=== PATIENT | male | born 1960 | race Hispanic/Latino ===

== ENCOUNTER 2020-06-01 11:14 | Emergency (ER) | payer SELFPAY ==
--- NOTE | 2020-06-01 12:38 | RAD REPORT ---
EXAM DESCRIPTION: RAD - Chest Single View - 06/01/2020 12:30 pm CLINICAL HISTORY: COUGH Chest pain. COMPARISON: No comparisons FINDINGS: Portable technique limits examination quality. The lungs are grossly clear. The heart is normal in size. No displaced fractures. IMPRESSION: No acute intrathoracic process suspected.
[2020-06-01 13:01] LABS: Absolute Lymphocytes (CBC) 1.1 K/uL (0.7-4.9); Basophils % 0.4 % (0-1.3); Hematocrit 48.2 % (39.6-49.0); Lymphocytes % 23.1 % (15.3-44.8)
--- NOTE | 2020-06-01 13:04 | ER ---
Nurse's Notes [facility] Name: Marcello Garcia Age: 60 yrs Sex: Male : 1960 Arrival Date: 06/01/2020 Time: 11:18 Bed 15 Private MD: Diagnosis: Presentation: 06/01 11:30 Chief complaint: Patient states: productive cough and SOB since yesterday. Pt also aa5 reports intermittent chest pain only with cough. 11:30 Coronavirus screen: cough unrelated to allergies, shortness of breath, Client presents aa5 with at least one sign or symptom that may indicate coronavirus-19. Standard/surgical mask placed on the client. Provider contacted for isolation considerations. Ebola Screen: Patient negative for fever greater than or equal to 101.5 degrees Fahrenheit, and additional compatible Ebola Virus Disease symptoms. Initial Sepsis Screen: Does the patient meet any 2 criteria? HR > 90 bpm. Does the patient have a suspected source of infection? Yes: Productive cough/pneumonia. Risk Assessment: Do you want to hurt yourself or someone else? Patient reports no desire to harm self or others. Onset of symptoms was 2020. 11:30 Method Of Arrival: Ambulatory aa5 11:30 Acuity: CODEY 2 aa5 Historical: - Allergies: 11:30 No Known Allergies; aa5 - Home Meds: 11:38 nitroglycerin 0.4 mg SL subl [Active]; aa5 - PMHx: 11:38 Heart problems; aa5 - Social history:: Smoking status: Patient reports the use of cigarette tobacco products, smokes one pack cigarettes per day. Screenin:15 Abuse screen: Denies threats or abuse. Denies injuries from another. Nutritional zb screening: No deficits noted. Tuberculosis screening: No symptoms or risk factors identified. Fall Risk None identified. Assessment: 12:15 General: Appears in no apparent distress. comfortable, Behavior is calm, cooperative, zb appropriate for age. Pain: Denies pain. Neuro: Level of Consciousness is awake, alert, obeys commands, Oriented to person, place, time, situation. Cardiovascular: Reports shortness of breath, Denies chest pain, Heart tones S1 S2 Capillary refill < 3 seconds in bilateral fingers Patient's skin is warm and dry. Rhythm is regular. Respiratory: Airway is patent Respiratory effort is even, unlabored, Respiratory pattern is regular, symmetrical, Breath sounds are clear bilaterally. GI: Abdomen is flat, non-distended, Bowel sounds present X 4 quads. : No signs and/or symptoms were reported regarding the genitourinary system. EENT: No signs and/or symptoms were reported regarding the EENT system. Derm: Skin is intact, is healthy with good turgor, Skin is normal. Musculoskeletal: Circulation, motion, and sensation intact. Capillary refill < 3 seconds, in bilateral fingers. Range of motion: intact in all extremities. 13:15 Reassessment: Patient appears in no apparent distress at this time. Patient and/or zb family updated on plan of care and expected duration. Pain level reassessed. Patient is alert, oriented x 3, equal unlabored respirations, skin warm/dry/pink. family at bedside. no c/o reported by patient at this time. 14:04 Reassessment: Patient appears in no apparent distress at this time. Patient and/or zb family updated on plan of care and expected duration. Pain level reassessed. Patient is alert, oriented x 3, equal unlabored respirations, skin warm/dry/pink. Hospitalist at bedside discussing POC w/ patient and family. 14:38 Reassessment: Pt states he doesn't want to be admitted to hospital. Pt understands aa5 risks of leaving AMA, including . . 14:40 Reassessment: Patient is alert, oriented x 3, equal unlabored respirations, skin aa5 warm/dry/pink. Vital Signs: 11:35 BP 176 / 111; Pulse 98; Resp 18 S; Temp 99.2(O); Pulse Ox 99% ; Weight 49.9 kg (R); aa5 Height 5 ft. 2 in. (157.48 cm) (R); 12:15 BP 174 / 105; Pulse 76; Resp 16; Pulse Ox 98% on R/A; zb 13:15 BP 174 / 105; Pulse 75; Resp 18; Pulse Ox 98% on R/A; zb 14:04 BP 169 / 119; Pulse 92; Resp 20; Pulse Ox 99% on R/A; zb 11:35 Body Mass Index 20.12 (49.90 kg, 157.48 cm) aa5 ED Course: 11:18 Patient arrived in ED. rg4 11:30 Arm band placed on. aa5 11:37 Triage completed. aa5 11:51 Collette M[facility]-C [facility]. snw 11:51 Bryon Samaniego MD is Attending Physician. snw 12:15 Patient has correct armband on for positive identification. Bed in low position. Call zb light in reach. Side rails up X 1. Adult w/ patient. manager monitoring on. Pulse ox on. NIBP on. Door closed. Noise minimized. 12:15 No provider procedures requiring assistance completed. zb 12:22 Namrata Katz RN is Primary Nurse. zb 12:30 Chest Single View XRAY In Process Unspecified. EDMS 12:49 Inserted saline lock: 20 gauge in right forearm, using aseptic technique. Blood dh4 collected. 12:50 IV is patent, is intact. zb 13:03 Ernst Smith is Hospitalizing Provider. snw 14:40 IV discontinued, intact, bleeding controlled, No redness/swelling at site. Pressure aa5 dressing applied. 14:41 Primary Nurse role handed off by Namrata Katz RN aa5 Administered Medications: 13:00 Drug: Aspirin Chewable Tablet 324 mg Route: PO; zb 13:56 Follow up: Response: No adverse reaction zb 13:00 Drug: NS 0.9% 1000 ml Route: IV; Rate: 50 ml/hr; Site: right forearm; zb 13:21 Drug: Nitroglycerin Patch 0.4 mg/hr 1 patches Route: Transdermal; Site: anterior chest zb wall; 13:56 Follow up: Response: No adverse reaction zb Outcome: 13:04 Decision to Hospitalize by Provider. snw 14:38 AMA AMA form signed aa5 14:38 Condition: stable 14:38 Discharge instructions given to patient, Instructed on discharge instructions, follow up and referral plans. medication usage, Demonstrated understanding of instructions, follow-up care, medications, Prescriptions given X 3. 14:40 Patient left the ED. aa5 Addendum: 06/15/2020 20:01 Addendum: COVID-19 Result: Positive result giiven to ED physician to notify pt. i w Physician: Bryon Samaniego MD Physician attempted to contact pt. Physician attempted to contact pt but the phone number provided was either not a working number or they were unable to leave a voice mail. Signatures: Dispatcher [employer] EDMS Collette Méndez, KNEE BOLTER-C KNEE BOLTER-Csnw Jasmin Trotter, RN RN iw Soraida Goins RN RN [id number] Jenny Mcclain 4 Dennys Jade 4 Namrata Katz RN RN zb Corrections: (The following items were deleted from the chart) 06/01 11:37 11:35 Arm band placed on aa5 aa5 11:38 11:30 Acuity: CODEY 3 aa5 aa5 14:43 14:42 Patient left the ED. aa5 aa5
--- NOTE | 2020-06-01 13:05 | EDPHYS ---
Physician Documentation [facility] Name: Marcello Garcia Age: 60 yrs Sex: Male : 1960 Arrival Date: 06/01/2020 Time: 11:18 Bed 15 Private MD: ED Physician Bryon Samaniego HPI: 06/01 12:36 This 60 yrs old Male presents to ER via Ambulatory with complaints of snw Breathing Difficulty. 12:36 The patient has shortness of breath with light activity. Onset: The symptoms/episode snw began/occurred suddenly, yesterday. Duration: The symptoms are chronic, and have existed for years. The patient's shortness of breath is aggravated by pt is without his medications. Associated signs and symptoms: Pertinent positives: chest pain, SOB. Severity of symptoms: At their worst the symptoms were moderate yesterday. The patient has experienced similar episodes in the past. The patient has not recently seen a physician. pt noncompliant with medications. Historical: - Allergies: 11:30 No Known Allergies; aa5 - Home Meds: 11:38 nitroglycerin 0.4 mg SL subl [Active]; aa5 - PMHx: 11:38 Heart problems; aa5 - Social history:: Smoking status: Patient reports the use of cigarette tobacco products, smokes one pack cigarettes per day. ROS: 12:35 Constitutional: Negative for fever, chills, and weight loss, Eyes: Negative for injury, snw pain, redness, and discharge, ENT: Negative for injury, pain, and discharge, Neck: Negative for injury, pain, and swelling, Abdomen/GI: Negative for abdominal pain, nausea, vomiting, diarrhea, and constipation, Back: Negative for injury and pain, : Negative for injury, bleeding, discharge, and swelling, MS/Extremity: Negative for injury and deformity, Skin: Negative for injury, rash, and discoloration, Neuro: Negative for headache, weakness, numbness, tingling, and seizure, Psych: Negative for depression, anxiety, suicide ideation, homicidal ideation, and hallucinations. 12:35 Cardiovascular: Positive for chest pain, of the chest. 12:35 Respiratory: Positive for shortness of breath, on exertion. Exam: 12:35 Constitutional: This is a well developed, well nourished patient who is awake, alert, snw and in no acute distress. Head/Face: Normocephalic, atraumatic. Eyes: Pupils equal round and reactive to light, extra-ocular motions intact. Lids and lashes normal. Conjunctiva and sclera are non-icteric and not injected. Cornea within normal limits. Periorbital areas with no swelling, redness, or edema. ENT: Nares patent. No nasal discharge, no septal abnormalities noted. Tympanic membranes are normal and external auditory canals are clear. Oropharynx with no redness, swelling, or masses, exudates, or evidence of obstruction, uvula midline. Mucous membranes moist. Neck: Trachea midline, no thyromegaly or masses palpated, and no cervical lymphadenopathy. Supple, full range of motion without nuchal rigidity, or vertebral point tenderness. No Meningismus. Chest/axilla: Normal chest wall appearance and motion. Nontender with no deformity. No lesions are appreciated. Cardiovascular: Regular rate and rhythm with a normal S1 and S2. No gallops, murmurs, or rubs. Normal PMI, no JVD. No pulse deficits. Respiratory: Lungs have equal breath sounds bilaterally, clear to auscultation and percussion. No rales, rhonchi or wheezes noted. No increased work of breathing, no retractions or nasal flaring. Abdomen/GI: Soft, non-tender, with normal bowel sounds. No distension or tympany. No guarding or rebound. No evidence of tenderness throughout. Back: No spinal tenderness. No costovertebral tenderness. Full range of motion. Skin: Warm, dry with normal turgor. Normal color with no rashes, no lesions, and no evidence of cellulitis. MS/ Extremity: Pulses equal, no cyanosis. Neurovascular intact. Full, normal range of motion. Neuro: Awake and alert, GCS 15, oriented to person, place, time, and situation. Cranial nerves II-XII grossly intact. Motor strength 5/5 in all extremities. Sensory grossly intact. Cerebellar exam normal. Normal gait. Psych: Awake, alert, with orientation to person, place and time. Behavior, mood, and affect are within normal limits. Vital Signs: 11:35 BP 176 / 111; Pulse 98; Resp 18 S; Temp 99.2(O); Pulse Ox 99% ; Weight 49.9 kg (R); aa5 Height 5 ft. 2 in. (157.48 cm) (R); 12:15 BP 174 / 105; Pulse 76; Resp 16; Pulse Ox 98% on R/A; zb 13:15 BP 174 / 105; Pulse 75; Resp 18; Pulse Ox 98% on R/A; zb 14:04 BP 169 / 119; Pulse 92; Resp 20; Pulse Ox 99% on R/A; zb 11:35 Body Mass Index 20.12 (49.90 kg, 157.48 cm) aa5 MDM: 11:52 Patient medically screened. [facility] 13:04 Data reviewed: vital signs, nurses notes. Data interpreted: Pulse oximetry: on room air snw is 99 %. Interpretation: normal. Physician consultation: Ernst Smith was called at 13:05, was contacted at 13:05. 14:11 Special discussion: pt refuses admission. AMA forms given and pt voices understanding snw of possibility of . 06/01 12:31 Order name: Basic Metabolic Panel; Complete Time: 13:25 snw 06/01 12:31 Order name: CBC with Diff; Complete Time: 13:25 snw 06/01 12:31 Order name: LFT's; Complete Time: 13:25 snw 06/01 12:31 Order name: Magnesium; Complete Time: 13:25 snw 06/01 11:53 Order name: Chest Single View XRAY; Complete Time: 12:44 snw 06/01 12:31 Order name: NT PRO-BNP; Complete Time: 13:25 snw 06/01 12:31 Order name: PT-INR; Complete Time: 13:25 snw 06/01 12:31 Order name: Troponin (emerg Dept Use Only); Complete Time: 13:25 snw 06/01 14:33 Order name: ERT AMA EDMS 06/01 12:31 Order name: EKG; Complete Time: 12:32 snw 06/01 12:31 Order name: Cardiac monitoring; Complete Time: 12:54 snw 06/01 12:31 Order name: EKG - Nurse/Tech; Complete Time: 12:36 snw 06/01 12:31 Order name: IV Saline Lock; Complete Time: 12:49 snw 06/01 12:31 Order name: Labs collected and sent; Complete Time: 12:49 snw 06/01 12:31 Order name: O2 Per Protocol; Complete Time: 12:49 snw 01 12:31 Order name: O2 Sat Monitoring; Complete Time: 12:49 snw Administered Medications: 13:00 Drug: Aspirin Chewable Tablet 324 mg Route: PO; zb 13:56 Follow up: Response: No adverse reaction zb 13:00 Drug: NS 0.9% 1000 ml Route: IV; Rate: 50 ml/hr; Site: right forearm; zb 13:21 Drug: Nitroglycerin Patch 0.4 mg/hr 1 patches Route: Transdermal; Site: anterior chest zb wall; 13:56 Follow up: Response: No adverse reaction zb Disposition: 16:34 Co-signature as Attending Physician, Bryon Samaniego MD I agree with the assessment and [facility] plan of care. Disposition: 06/01/20 14:42 Patient has left against medical advice. - Patients states they are going to Home. - Condition is Fair. Signatures: Dispatcher [employer] Salena Gagnon, RN Bryon Fernandez MD MD cha Waters, Shelly, MOTION PICTURE PROJECTIONIST-C MOTION PICTURE PROJECTIONIST-Csnw Soraida Goins, EMILY RN Namrata Carver RN RN zb Corrections: (The following items were deleted from the chart) 13:31 13:04 Hospitalization Ordered by Ernst Smith for Observation. Preliminary diagnosis dm5 is Chest pain, unspecified; Essential (primary) hypertension; Patient's noncompliance with medical treatment and regimen. Bed requested for Telemetry/MedSurg (observation). Status is Observation. Condition is Stable. Problem is an acute exacerbation. Symptoms are unchanged. snw 13:46 11:54 CORONAVIRUS+MR.LAB.BRZ ordered. EDKS EDMS 13:50 11:54 Influenza Screen (A \T\ B)+BA.LAB.BRZ ordered. EDKS EDMS 14:10 13:31 06/01/2020 13:04 Hospitalization Ordered by Ernst Smith for Observation. snw Preliminary diagnosis is Chest pain, unspecified; Essential (primary) hypertension; Patient's noncompliance with medical treatment and regimen. Bed requested for [facility] ER HOLD. Status is Observation. Condition is Stable. Problem is an acute exacerbation. Symptoms are unchanged. dm5 14:40 14:10 06/01/2020 13:04 Hospitalization Ordered by Ernst Smith for Observation. aa5 Preliminary diagnosis is Chest pain, unspecified; Essential (primary) hypertension; Patient's noncompliance with medical treatment and regimen. Bed requested for [facility] ER HOLD. Status is Observation. Condition is Stable. Problem is an acute exacerbation. Symptoms are unchanged. snw 14:42 14:40 06/01/2020 13:04 Hospitalization Ordered by Ernst Smith for Observation. aa5 Preliminary diagnosis is Chest pain, unspecified; Essential (primary) hypertension; Patient's noncompliance with medical treatment and regimen. Bed requested for [facility] ER HOLD. Status is Observation. Condition is Stable. Problem is an acute exacerbation. Symptoms are unchanged. aa5
[2020-06-01 13:15] LABS: Protime INR 0.95
[2020-06-01] MEDS ORDERED: NITROGLYCERIN 0.4 MG/HR (10 MG) PATCH TD ONE (13:15)
[2020-06-01 13:22] LABS: ALT/SGPT 40 U/L (12-78); AST/SGOT 33 U/L (15-37); Albumin 4.1 g/dL (3.4-5.0); Alkaline Phosphatase 135 U/L (45-117); BUN Blood Urea Nitrogen 15 mg/dL (7-18); Bicarbonate 27 mmol/L (21-32); Bilirubin Direct 0.2 mg/dL (0-0.2); Bilirubin Total 0.7 mg/dL (0.2-1.0); Glucose Level 78 mg/dL (74-106); Magnesium 2.3 mg/dL (1.8-2.4); NT PRO-BNP 108 pg/mL (<125); Potassium 3.9 mmol/L (3.5-5.1); Protein, Total 7.4 g/dL (6.4-8.2); Sodium Level 139 mmol/L (136-145); Troponin (Emerg Dept Use Only) < 0.02 ng/mL (0.0-0.045)
[2020-06-01 14:48] LABS: SARS-COV-2 RT PCR POSITIVE (NEGATIVE)
[2020-06-01 15:08] VITALS: TEMP 99.2
[2020-06-01 15:32] VITALS: BP 169/119; O2SAT 99
--- NOTE | 2020-06-02 08:18 | EKG ---
Test Date: 2020-06-01 Test Time: 11:43:47 Functional Architect: LISSETT MEASUREMENT RESULTS: Intervals: Rate: 82 OR: 130 QRSD: 94 QT: 352 QTc: 411 [place]: P: 74 OR: 130 QRS: 49 T: 53 INTERPRETIVE STATEMENTS: Normal sinus rhythm Right atrial enlargement Incomplete right bundle branch block Borderline ECG Compared to ECG 08/28/2005 05:32:00 Atrial abnormality now present Incomplete right bundle-branch block now present Sinus arrhythmia no longer present Myocardial infarct finding no longer present Electronically Signed On 06-02-20 08:17:29 PRODUCT DEVELOPMENT TECHNICIAN by Dave Joiner
== END 2020-06-01 14:42 | disposition left against medical advice (07) ==
LOC: ER 11:14
DX: U07.1 COVID-19 (principal); F17.210 Nicotine dependence, cigarettes, uncomplicated
CPT/HCPCS: 0240U; 36415; 71045; 80048; 80076; 83735; 83880; 84484; 85025; 85610; 93005; 99284